=== PATIENT | female | born 1950 | race Caucasian/White ===

== ENCOUNTER 2023-03-09 08:43 | Emergency (ER) | payer OTHER ==
[2023-03-09] MEDS ORDERED: NA CHLORIDE 0.9% 1,000 ML ONE ×2 (09:32→12:28)
[2023-03-09] MEDS ORDERED: FAMOTIDINE 20 MG/2 ML VIAL IV ONE (09:32)
[2023-03-09] MEDS ORDERED: KETOROLAC 30 MG/ML INJ ONE (09:33)
[2023-03-09 09:34] LABS: Absolute Lymphocytes (CBC) 1.9 K/uL (0.7-4.9); Hematocrit 49.6 % (36.0-45.0); MCV 86.8 fL (80-100); Platelets 272 thou/uL (152-406); RBC Red Blood Cell Count 5.71 M/uL (3.86-4.86)
[2023-03-09 10:03] LABS: Bilirubin Total 0.5 mg/dL (0.2-1.0); Potassium 3.5 mEq/L (3.5-5.1); Protein, Total 8.7 g/dL (6.4-8.2)
--- NOTE | 2023-03-09 10:03 | RAD REPORT ---
EXAM DESCRIPTION: CT - Stone Protocol - 03/09/2023 9:46 am CLINICAL HISTORY: Flank pain. KIDNEY STONES COMPARISON: No comparisons TECHNIQUE: Axial images were obtained without oral or IV contrast. Lack of contrast limits solid org an and vascular assessment. The [id number] spans the entirety of the system partially obscuring uppermost abdomen and lung bases. Coronal reformatted images were obtained and reviewed. All CT scans are performed using dose optimization technique as appropriate and may include automated exposure control or mA/KV adjustment according to patient size. FINDINGS: The lower lung long are clear. Small hiatal hernia. Imaged portions of the liver and spleen show no suspicious findings on non-contrast imaging. The panc reas and adrenal glands are normal. No pathologic lymphadenopathy in the abdomen or pelvis. No urinary tract stones or obstructive uropathy. Left-sided renal cysts are present largest measuring 4.4 cm superiorly. No bowel obstruction, free air, free fluid or abscess. Normal appendix noted.Mild sigmoid diverticulo sis coli without diverticulitis. Moderate lower lumbar degenerative changes. IMPRESSION: No urinary tract stones or obstructive uropathy. Benign left-sided renal cysts. Sigmoid diverticulosis coli without diverticulitis.
[2023-03-09 11:57] LABS: Specific Gravity 1.013 (1.005-1.030); Urine Bacteria None Seen /HPF (<20); Urine Bilirubin NEGATIVE (Negative); Urine Blood 1+ (Negative); Urine Clarity Turbid (Clear); Urine Color Colorless (Yellow); Urine Glucose NEGATIVE (Negative); Urine Mucus Slight /HPF (None Seen); Urine Protein 1+ (Negative); Urine Urobilinogen Normal (Normal)
[2023-03-09] MEDS ORDERED: SIMETHICONE 80 MG CHEWABLE TAB ONE (12:28)
--- NOTE | 2023-03-09 12:33 | EDPHYS ---
Physician Documentation [facility] Name: Lori Thomas Age: 72 yrs Sex: Female : 1950 Arrival Date: 03/09/2023 Time: 08:43 Bed 19 Private MD: ED Physician Juanpablo Cortes HPI: 03/09 09:44 This 72 yrs old Female presents to ER via Wheelchair with complaints of Abdominal Pain, snw Vomiting. 09:44 The patient presents with abdominal pain in the epigastric area, in the right upper snw quadrant, right lower quadrant. Onset: The symptoms/episode began/occurred acutely. The symptoms do not radiate. Associated signs and symptoms: Pertinent positives: nausea and vomiting, nausea, right sided and epigastric abd pain. The symptoms are described as sharp, shooting. Severity of pain: At its worst the pain was severe. The patient has not experienced similar symptoms in the past. Historical: - Allergies: 09:05 hydrocodone; hb 09:05 PENICILLINS; hb - PMHx: 09:05 GERD; hb - Immunization history:: Adult Immunizations unknown. - Social history:: Smoking status: unknown. ROS: 09:43 Constitutional: Negative for fever, chills, and weight loss, Eyes: Negative for injury, snw pain, redness, and discharge, ENT: Negative for injury, pain, and discharge, Neck: Negative for injury, pain, and swelling, Cardiovascular: Negative for chest pain, palpitations, and edema, Respiratory: Negative for shortness of breath, cough, wheezing, and pleuritic chest pain, Back: Negative for injury and pain, : Negative for injury, bleeding, discharge, and swelling, MS/Extremity: Negative for injury and deformity, Skin: Negative for injury, rash, and discoloration, Neuro: Negative for headache, weakness, numbness, tingling, and seizure, Psych: Negative for depression, anxiety, suicide ideation, homicidal ideation, and hallucinations, 09:43 Abdomen/GI: Positive for abdominal pain, nausea and vomiting, of the epigastric area, suprapubic area, right upper quadrant and right lower quadrant, Exam: 09:43 Head/Face: Normocephalic, atraumatic. Eyes: Pupils equal round and reactive to light, snw extra-ocular motions intact. Lids and lashes normal. Conjunctiva and sclera are non-icteric and not injected. Cornea within normal limits. Periorbital areas with no swelling, redness, or edema. ENT: Nares patent. No nasal discharge, no septal abnormalities noted. Tympanic membranes are normal and external auditory canals are clear. Oropharynx with no redness, swelling, or masses, exudates, or evidence of obstruction, uvula midline. Mucous membranes moist. Neck: Trachea midline, no thyromegaly or masses palpated, and no cervical lymphadenopathy. Supple, full range of motion without nuchal rigidity, or vertebral point tenderness. No Meningismus. Chest/axilla: Normal chest wall appearance and motion. Nontender with no deformity. No lesions are appreciated. Cardiovascular: Regular rate and rhythm with a normal S1 and S2. No gallops, murmurs, or rubs. Normal PMI, no JVD. No pulse deficits. Respiratory: Lungs have equal breath sounds bilaterally, clear to auscultation and percussion. No rales, rhonchi or wheezes noted. No increased work of breathing, no retractions or nasal flaring. Back: No spinal tenderness. No costovertebral tenderness. Full range of motion. 09:43 Skin: Warm, dry with normal turgor. Normal color with no rashes, no lesions, and no evidence of cellulitis. MS/ Extremity: Pulses equal, no cyanosis. Neurovascular intact. Full, normal range of motion. Neuro: Awake and alert, GCS 15, oriented to person, place, time, and situation. Cranial nerves II-XII grossly intact. Motor strength 5/5 in all extremities. Sensory grossly intact. Cerebellar exam normal. Normal gait. Psych: Awake, alert, with orientation to person, place and time. Behavior, mood, and affect are within normal limits. 09:43 Constitutional: The patient appears alert, anxious, restless, uncomfortable, 09:43 Abdomen/GI: Inspection: abdomen appears normal, Bowel sounds: normal, Palpation: moderate abdominal tenderness, in the epigastric area, umbilical area, right upper quadrant and right lower quadrant, Vital Signs: 09:03 Pulse 75; Resp 20; Temp 97; Pulse Ox 100% on R/A; Weight 83.01 kg; Height 5 ft. 4 in. ; hb Pain 8/10; 10:09 BP 176 / 82; Pulse 68; Resp 18; Pulse Ox 100% ; nj1 10:32 Pain 5/10; nj1 11:30 BP 168 / 68; Pulse 62; Resp 16; Temp 97(TE); Pulse Ox 98% ; Pain 5/10; nj1 09:03 Body Mass Index 31.41 (83.01 kg, 162.56 cm) hb 09:03 Pain Scale: Adult hb 10:32 Pain Scale: Adult nj1 11:30 Pain Scale: Adult nj1 MDM: 09:08 Patient medically screened. snw 09:44 Differential diagnosis: bowel obstruction, Pyelonephritis, Ureterolithiasis, urinary snw tract infection. Data reviewed: vital signs, nurses notes. I considered the following discharge prescriptions or medication management in the emergency department Medications were administered in the Emergency Department. See JUN. ED course: pt to CT via w/c. 03/09 08:57 Order name: Urine W/Microscopic (UAM); Complete Time: 12:03 snw 03/09 09:12 Order name: CBC with Diff; Complete Time: 09:42 snw 03/09 09:12 Order name: CMP; Complete Time: 10:04 snw 03/09 09:12 Order name: Lipase; Complete Time: 10:04 snw 03/09 09:12 Order name: Stone Protocol CT; Complete Time: 10:04 snw 03/09 09:12 Order name: EKG; Complete Time: 09:13 snw 03/09 09:12 Order name: IV Saline Lock; Complete Time: 09:17 snw 03/09 09:12 Order name: Labs collected and sent; Complete Time: 09:17 snw 03/09 09:12 Order name: EKG - Nurse/Tech; Complete Time: 09:25 snw EC:27 Rate is 71 beats/min. Rhythm is regular. QRS [place] is Normal. [place] interval is normal. QRS snw interval is normal. QT interval is normal. T waves are Inverted in lead aVR. Clinical impression: NSR w/ Non-specific ST/T Changes. Administered Medications: 09:24 Drug: NS 0.9% IV 1000 ml IV at 1 bolus Per protocol; 1000 mL bolus Route: IV; Rate: 1 ld1 bolus; Site: left antecubital; :25 Drug: Famotidine IVP 20 mg IVP once; dilute with 10 mL 0.9% NaCl; give over 2 minutes ld1 Route: IVP; Site: left antecubital; 10:32 Follow up: Response: No adverse reaction nj1 09:25 Drug: TORadol - Ketorolac IVP 15 mg IVP once Route: IVP; Site: left antecubital; ld1 10:32 Follow up: Pain 5/10 Adult; Response: Pain is decreased nj1 12:18 Drug: NS 0.9% IV 1000 ml IV at 1 bolus Per protocol; 1000 mL bolus Route: IV; Rate: 1 nj1 bolus; Site: left antecubital; 12:20 Drug: Simethicone PO 240 mg PO once Route: PO; nj1 Disposition: 12:12 I was immediately available on-site in the Emergency Department for consultation in the ms3 care of the patient. Disposition Summary: 03/09/23 12:32 Discharge Ordered Notes: Location: Home snw Condition: Stable snw Diagnosis - Upper abdominal pain, unspecified snw - Dehydration snw - Gas pain snw - Diverticulosis of large intestine without perforation or abscess without bleeding snw Followup: snw - With: Emergency Department - When: As needed - Reason: Worsening of condition Followup: snw - With: Private Physician - When: 2 - 3 days - Reason: Recheck today's complaints, Continuance of care, Re-evaluation by your physician Discharge Instructions: - Discharge Summary Sheet snw - Abdominal Pain, Adult snw - Colic snw - Dehydration, Elderly snw - Diverticulosis snw - Gas and Gas Pains, Pediatric snw - Rehydration, Elderly snw Forms: - Medication Reconciliation Form snw - Thank You Letter snw - Antibiotic Education snw - Prescription Opioid Use snw - Patient Portal Instructions snw - Leadership Thank You Letter snw Prescriptions: - Carafate 1 gram Oral Tablet - take 2 tablets ORAL route every 12 hours take on an empty stomach, beginning on snw waking and last dose at bedtime; 100 tablet; Refills: 0, Product Selection Permitted - promethazine 25 mg Oral Tablet - take 1 tablet ORAL route every 6 hours As needed; 20 tablet; Refills: 0, snw Product Selection Permitted Signatures: Dispatcher [employer] EDAstrid Leblanc FNP-C FNP-Csnw Norma Francisco RN RN Juanpablo Cortes, DO DO ms3 Quynh Cortes RN RN ld1 January Mcgrath, RN RN nj1 Corrections: (The following items were deleted from the chart) 11:50 09:13 Urinalysis+U.LAB.BRZ ordered. EDMS EDMS
--- NOTE | 2023-03-09 12:33 | ER ---
Nurse's Notes [facility] Name: Lori Thomas Age: 72 yrs Sex: Female : 1950 Arrival Date: 03/09/2023 Time: 08:43 Bed 19 Private MD: Diagnosis: Upper abdominal pain, unspecified;Dehydration;Gas pain;Diverticulosis of large intestine without perforation or abscess without bleeding Presentation: 03/09 09:03 Chief complaint: Upper abdominal pain N/V since yesterday, diarrhea and bright red hb rectal bleeding today. Coronavirus screen: At this time, the client does not indicate any symptoms associated with coronavirus-19. Ebola Screen: No symptoms or risks identified at this time. Initial Sepsis Screen: Does the patient meet any 2 criteria? No. Patient's initial sepsis screen is negative. Does the patient have a suspected source of infection? No. Patient's initial sepsis screen is negative. Risk Assessment: Do you want to hurt yourself or someone else? Patient reports no desire to harm self or others. Onset of symptoms was March 08, 2023. 09:03 Method Of Arrival: Wheelchair hb 09:03 Acuity: HERNANDEZ 3 hb Historical: - Allergies: 09:05 hydrocodone; hb 09:05 PENICILLINS; hb - PMHx: 09:05 GERD; hb - Immunization history:: Adult Immunizations unknown. - Social history:: Smoking status: unknown. Screenin:08 [facility] ED Fall Risk Assessment (Adult) Score/Fall Risk Level 0 - 2 = Low Risk nj1 Oriented to surroundings, Maintained a safe environment, Hourly rounding (assess needs \T\ fall precautionary measures) done. Abuse screen: Denies threats or abuse. Denies injuries from another. Nutritional screening: No deficits noted. Tuberculosis screening: No symptoms or risk factors identified. Assessment: 09:30 General: Appears in no apparent distress. uncomfortable, Behavior is calm, cooperative, nj1 appropriate for age. 09:30 Pain: Complains of pain in abdomen Pain currently is 7 out of 10 on a pain scale. nj1 Neuro: Level of Consciousness is awake, alert, obeys commands, Oriented to person, place, time, situation. Cardiovascular: Patient's skin is warm and dry. Respiratory: Airway is patent Respiratory effort is even, unlabored. GI: Reports upper abdominal pain, diarrhea, rectal bleeding, nausea. 10:34 Reassessment: Patient appears in no apparent distress at this time. Patient and/or nj1 family updated on plan of care and expected duration. Pain level reassessed. Patient is alert, oriented x 3, equal unlabored respirations, skin warm/dry/pink. Patient states symptoms have improved. 11:30 Reassessment: Patient appears in no apparent distress at this time. Patient and/or nj1 family updated on plan of care and expected duration. Pain level reassessed. Patient is alert, oriented x 3, equal unlabored respirations, skin warm/dry/pink. Pain: Complains of pain in epigastric area Pain radiates to back Pain currently is 5 out of 10 on a pain scale. Vital Signs: 09:03 Pulse 75; Resp 20; Temp 97; Pulse Ox 100% on R/A; Weight 83.01 kg; Height 5 ft. 4 in. ; hb Pain 8/10; 10:09 BP 176 / 82; Pulse 68; Resp 18; Pulse Ox 100% ; nj1 10:32 Pain 5/10; nj1 11:30 BP 168 / 68; Pulse 62; Resp 16; Temp 97(TE); Pulse Ox 98% ; Pain 5/10; nj1 09:03 Body Mass Index 31.41 (83.01 kg, 162.56 cm) hb 09:03 Pain Scale: Adult hb 10:32 Pain Scale: Adult nj1 11:30 Pain Scale: Adult nj1 ED Course: 08:48 Patient arrived in ED. mr 08:57 Astrid Rogers FNP-C [facility] snw 08:57 Juanpablo Cortes DO is Attending Physician. snw 09:05 Triage completed. hb 09:05 Arm band placed on. hb 09:11 Quynh Cortes, RN is Primary Nurse. ld1 09:17 Inserted saline lock: 22 gauge in left antecubital area, using aseptic technique. ld1 09:17 COVID-19/FLU A+B Sent. ld1 09:[address] In Process Unspecified. EDMS 10:09 Patient has correct armband on for positive identification. Bed in low position. Call nj light in reach. Adult w/ patient. 11:33 Notified Nurse Practitioner and/or Physician Saxophone Assembler of Pain description. nj1 12:32 Juanpablo Cortes DO is Referral Physician. snw 13:00 No provider procedures requiring assistance completed. IV discontinued, intact, ld1 bleeding controlled, No redness/swelling at site. Administered Medications: 09:24 Drug: NS 0.9% IV 1000 ml IV at 1 bolus Per protocol; 1000 mL bolus Route: IV; Rate: 1 ld1 bolus; Site: left antecubital; 09:25 Drug: Famotidine IVP 20 mg IVP once; dilute with 10 mL 0.9% NaCl; give over 2 minutes ld1 Route: IVP; Site: left antecubital; 10:32 Follow up: Response: No adverse reaction nj1 09:25 Drug: TORadol - Ketorolac IVP 15 mg IVP once Route: IVP; Site: left antecubital; ld1 10:32 Follow up: Pain 5/10 Adult; Response: Pain is decreased nj1 12:18 Drug: NS 0.9% IV 1000 ml IV at 1 bolus Per protocol; 1000 mL bolus Route: IV; Rate: 1 nj1 bolus; Site: left antecubital; 12:20 Drug: Simethicone PO 240 mg PO once Route: PO; nj1 Medication: 13:00 VIS not applicable for this client. ld1 Outcome: 12:32 Discharge ordered by MD. snw 13:00 Discharged to home with family, ld1 13:00 Condition: stable 13:00 Discharge instructions given to patient, family, Instructed on discharge instructions, follow up and referral plans. Demonstrated understanding of instructions, follow-up care, medications, Prescriptions given X 2, 13:01 Patient left the ED. ld1 Signatures: Dispatcher [employer] EDMN Astrid Rogers, [employer]-Rosyw Sury Chirinos, Reg Reg mr Norma Francisco, RN RN Quynh Cortes RN RN ld1 January Mcgrath RN RN nj1 Corrections: (The following items were deleted from the chart) 10:25 10:09 Pulse 68bpm; Resp 18bpm; Pulse Ox 100%; nj1 nj1
[2023-03-09 13:54] VITALS: BP 168/68; TEMP 97; O2SAT 98
== END 2023-03-09 13:01 | disposition home or self-care (01) ==
LOC: ER 08:43
DX: R10.13 Epigastric pain (principal); E86.0 Dehydration; R14.1 Gas pain; K21.9 Gastro-esophageal reflux disease without esophagitis
CPT/HCPCS: 93005; 85025; 81001; 36415; 83690; 80053; 76377; 74176; 96375; 96374; 99284; J7030 ×2